=== PATIENT | female | born 1930 ===

== ENCOUNTER 2018-02-09 17:06 | Emergency (ER) | payer MEDICARE, MEDICAID ==
[2018-02-09 17:15] VITALS: RESP 16; TEMP 98.8
[2018-02-09] MEDS ORDERED: Lidocaine 1% w Epi 1:100,000 Inj INFIL ONE (17:40)
--- NOTE | 2018-02-09 17:50 | ED PDOC ---
HPI: General Adult Time Seen by Provider: 02/09/18 17:48 Chief Complaint (Nursing): Trauma Chief Complaint (Provider): HEAD TRAUMA History Per: Patient (87 Y/O FEMALE HERE FOR EVALUATION OF HEAD INJURY THAT OCCURRED TODAY WHEN SHE TRIPPED AND STRUCK HEAD AGAINST EDGE OF DESK. DENIES ANY LOC. NOTES BLEEDING FROM SCALP. ) Past Medical History Reviewed: Historical Data, Nursing Documentation, Vital Signs Vital Signs: Last Vital Signs Temp 98.8 F 02/09/18 17:11 Pulse 72 02/09/18 17:11 Resp 16 02/09/18 17:11 BP 156/70 H 02/09/18 17:11 Pulse Ox 97 02/09/18 17:54 - Family History Family History: States: No Known Family Hx - Allergies Allergies/Adverse Reactions: Allergies Allergy/AdvReac Type Severity Reaction Status Date / Time Penicillins Allergy RASH Verified 02/09/18 17:11 soy Allergy SWELLING Verified 02/09/18 17:11 Review of Systems ROS Statement: Except As Marked, All Systems Reviewed And Found Negative Physical Exam - Reviewed Nursing Documentation Reviewed: Yes Vital Signs Reviewed: Yes - Physical Exam Appears: Positive for: Well, Non-toxic, No Acute Distress Head Exam: Positive for: NORMAL INSPECTION, NORMOCEPHALIC. Negative for: ATRAUMATIC (LACERATION #1 SCALP LEFT PARIETAL REGION 1.5 CM LINEAR. LACERATION #2 1.25 CM PROXIMAL TO LAC #1 AVULSION/FLAP-LAC.) Skin: Positive for: Normal Color, Warm, DRY Eye Exam: Positive for: EOMI, Normal appearance, PERRL ENT: Positive for: Normal ENT Inspection Neck: Positive for: Normal, Painless ROM Cardiovascular/Chest: Positive for: Regular Rate, Rhythm Respiratory: Positive for: CNT, Normal Breath Sounds Gastrointestinal/Abdominal: Positive for: Normal Exam, Soft Back: Positive for: Normal Inspection Extremity: Positive for: Normal ROM, Other (LACERATION #3 RIGHT EXTENSOR SURFACE OF DISTAL FOREARM AVULSION FLAP 5 CM) Neurologic/Psych: Positive for: Alert, Oriented - ECG O2 Sat by Pulse Oximetry: 97 - Progress ED Course And Treament: CT head: wnl CT C spine: wnl Tetanus up to date 2 years ago LACERATION #1 1.5 CM LACERATION L SHAPED LACERATION TWO JONI PLACED LEFT PARIETAL REGION OF SCALP LACERATION #2 1.25 CM LACERATION AVULSION FLAP LACERATION TWO JONI PLACED PROXIMAL TO LACERATION #1 LACERATION #3 AVULSION-FLAP LACERATION RIGHT FOREARM APPROX 5 CM REPAIRED WITH DERMABOND. Disposition - Clinical Impression Clinical Impression: Head injury, Laceration of head, Forearm laceration - Patient ED Disposition Is Patient to be Admitted: No - Disposition Disposition: Routine/Home Disposition Time: 18:56 Condition: FAIR Additional Instructions: RETURN TO ED/PMD/URGENT CARE IN 7 -10 DAYS FOR REMOVAL OF JONI FOLLOW UP WITH PMD/ED /URGENT CARE IN 2-3 DAYS FOR WOUND EVALUATION. Instructions: Laceration Repair With Glue (DC), Closed Head Injury (DC), Laceration Repair With Joni (DC) Print Language: MOROCCAN Procedure: Wound Repair - Time Performed Time Performed: 17:51 - Time Out Time Out: Site verified - Consent Obtained Consent obtained: Verbal - Performed by Performed by: Mid-level Provider - Indications Indication(s):: Laceration - Location Location:: Scalp Shape:: Linear Dimensions Length cm: 1.5CM Depth:: Epidermis - Anesthetic Technique Local/Regional Anesthetic:: Lidocaine 1% w/epi - Irrigated Irrigated with ml of normal saline: 150 ML STERILE WATER - Complexity Complexity:: Simple (one layer) - Wound repair method Sutures:: Technique (INTERRUPTED JONI) - Complications Complications: LAC #2 TWO JONI PLACED INTERRUPTED - Patient tolerated procedure Patient Tolerated Procedure:: Well
--- NOTE | 2018-02-09 18:21 | CT ---
Date of service: 02/09/2018 PROCEDURE: CT HEAD WITHOUT CONTRAST. HISTORY: HEAD INJURY COMPARISON: Noncontrast head CT 11/23/2013. TECHNIQUE: Axial computed tomography images were obtained through the head/brain without intravenous contrast. Radiation dose: Total exam DLP = 752.13 mGy-cm. This CT exam was performed using one or more of the following dose reduction techniques: Automated exposure control, adjustment of the mA and/or kV according to patient size, and/or use of iterative reconstruction technique. FINDINGS: HEMORRHAGE: No intracranial hemorrhage. BRAIN: Good corticomedullary differentiation is seen. Proportional, minimal diffuse expansion of the ventriculosulcal and cisternal spaces is appreciated with trace white matter lucency compatible with diffuse cerebral atrophy and chronic microangiopathy. No suspicious extra-axial fluid collection is identified and the midline brain anatomy appears grossly nonfocal as imaged. There is no mass effect throughout. VENTRICLES: Unremarkable. No hydrocephalus. CALVARIUM: No destructive bony lesion or displaced fracture identified including through the skullbase. PARANASAL SINUSES: Unremarkable as visualized. No significant inflammatory changes. MASTOID AIR CELLS: Unremarkable as visualized. No inflammatory changes. OTHER FINDINGS: None. IMPRESSION: Minimal age related neuro degenerative findings, less than expected for age. Exam otherwise unremarkable.
[2018-02-09] MEDS ORDERED: Lidocaine 1% 20 MG/2 ML PF AMP ONE ×2 (18:23→18:38)
--- NOTE | 2018-02-09 18:24 | CT ---
Date of service: 02/09/2018 PROCEDURE: CT Cervical Spine without contrast HISTORY: FALL; HEAD INJURY COMPARISON: None available. TECHNIQUE: Axial computed tomography images were obtained of the cervical spine without the use of intravenous contrast. Coronal and sagittal reformatted images were created and reviewed. Radiation dose: Total exam DLP = 642.14 mGy-cm. This CT exam was performed using one or more of the following dose reduction techniques: Automated exposure control, adjustment of the mA and/or kV according to patient size, and/or use of iterative reconstruction technique. FINDINGS: VERTEBRAE: No fracture. Straightened curvature but no spondylolisthesis identified. No destructive bony lesion. Mild multilevel cervical spondylosis. DISCS/SPINAL CANAL/NEURAL FORAMINA: No significant central canal or neural foraminal stenosis. Discs heights are grossly preserved. PARASPINAL SOFT TISSUES: Unremarkable. Vascular calcification at the thoracic inlet. OTHER FINDINGS: None. IMPRESSION: Straightened curvature without fracture or spondylolisthesis identified.
[2018-02-09 19:19] VITALS: BP 138/69; PULSE 71; O2SAT 98
== END 2018-02-09 19:20 | disposition home or self-care (01) ==
LOC: H.ER 17:06
DX: S09.90XA Unspecified injury of head, initial encounter (principal); W01.0XXA Fall on same level from slipping, tripping and stumbling without subsequent striking against object, initial encounter; Y92.89 Other specified places as the place of occurrence of the external cause; Z88.0 Allergy status to penicillin